=== PATIENT | male | born 1970 | race Caucasian/White ===

== ENCOUNTER 2018-07-23 13:35 | Emergency (ER) | payer SELFPAY ==
[~2018-07-23] VITALS: Ht 175.3 cm; Wt 90.9 kg
[2018-07-23] MEDS ORDERED: CARB200T PO (13:58)
[2018-07-23] MEDS: TraMADol HCL 50 MG TABLET PO ONE (14:33)
[2018-07-23] MEDS: PredniSONE 20 MG TABLET PO ONE (14:33)
[2018-07-23 15:05] VITALS: BP 110/86
== END 2018-07-23 15:18 | disposition home or self-care (01) ==
LOC: EMS 13:35
DX: H66.91 Otitis media, unspecified, right ear (principal); H72.91 Unspecified perforation of tympanic membrane, right ear
CPT/HCPCS: 99283; J7512

== ENCOUNTER 2018-07-27 09:10 | Emergency (ER) | payer MEDICAID ==
[~2018-07-27] VITALS: Ht 175.3 cm; Wt 90.9 kg
[~2018-07-27 09:10] MED LIST: CARB200T PO
[2018-07-27] MEDS ORDERED: IBUPROFEN 600 MG TABLET PO ONE (09:45)
[2018-07-27] MEDS ORDERED: LIDOCAINE 5% TRANSDERMAL PATCH TD ONE (09:45)
[2018-07-27 11:10] VITALS: BP 112/69
== END 2018-07-27 11:15 | disposition home or self-care (01) ==
LOC: EMS 09:10
DX: M16.12 Unilateral primary osteoarthritis, left hip (principal); G89.29 Other chronic pain
CPT/HCPCS: 73503

== ENCOUNTER 2018-07-29 14:45 | Emergency (ER) | payer MEDICAID ==
[~2018-07-29] VITALS: Ht 175.3 cm; Wt 90.9 kg
[2018-07-29] MEDS ORDERED: AMOX1TAB16 PO (15:04)
[2018-07-29] MEDS ORDERED: PRED20 PO (15:04)
[2018-07-29] MEDS ORDERED: ALBUTEROL SULFATE 2.5 MG/0.5 ML NEB SOLUTION NEB ONE (16:15)
[2018-07-29] MEDS ORDERED: IPRATROPIUM BROMIDE 0.5 MG/2.5 ML NEB SOLUTION NEB ONE (16:15)
[2018-07-29] MEDS ORDERED: HydrOXYzine PAMOATE 25 MG CAPSULE PO ONE (16:45)
[2018-07-29 16:55] VITALS: BP 120/74
== END 2018-07-29 17:15 | disposition home or self-care (01) ==
LOC: EMS 14:45
DX: R06.02 Shortness of breath (principal); F41.9 Anxiety disorder, unspecified; F17.210 Nicotine dependence, cigarettes, uncomplicated; Z79.899 Other long term (current) drug therapy
CPT/HCPCS: 94640